=== PATIENT | female | born 1975 | race Caucasian/White ===

== ENCOUNTER → 2017-04-04 | Outpatient (CLI) | payer MEDICAID ==
[~2017-04-04] MED LIST: AMLO5TAB2 PO; ARIP5TAB6 PO; ASPI-515 PO; CELE200C PO; CIPR750T PO; DIAZ5TAB PO; DOCU-30 PO; HYDR-3138 PO; HYDR25TA6 PO; LEVO75TA5 PO; LOSA25TA5 PO; METH750T2 PO; NEBI10TA3 PO; OLME40TA PO; ONDA4TAB10 PO; OXYC-229 PO; OXYC-302 PO; OXYC5CAP4 PO; TRAM50TA2 PO; VENL37.52 PO; VENL75CA PO
[2017-04-04 14:57] LABS: BLOOD UREA NITROGEN 16 mg/dL (7-18)
[2017-04-04 15:00] LABS: ASPARTATE AMINO TRANSFERASE 24 U/L (15-37)
[2017-04-04 15:36] LABS: HIV 1&2 ANTIBODY SCREEN Nonreactive (Nonreactive); HIV-1 p24 ANTIGEN Nonreactive (Nonreactive)
== END | disposition home or self-care (01) ==
LOC: STAR 13:32
PROVIDERS: ATTEND Orthopaedic Surgery
DX: Z01.818 Encounter for other preprocedural examination (principal); M17.32 Unilateral post-traumatic osteoarthritis, left knee; R79.1 Abnormal coagulation profile
CPT/HCPCS: 36415; 80053; 83036; 85025; 85610; 85730; 86703; 87081; 87147; 87899; G0435

== ENCOUNTER 2017-04-08 07:43 | Inpatient (IN) | payer MEDICAID ==
[2017-04-04 14:21] VITALS: BP 147/114
[~2017-04-08] VITALS: Ht 172.7 cm; Wt 140.4 kg
[~2017-04-08 07:43] MED LIST changes: -ASPI-515 PO; -CELE200C PO; -DIAZ5TAB PO; -OXYC5CAP4 PO
[2017-04-08] MEDS ORDERED: VANCOMYCIN PER PHARMACY MC STA (08:09)
[2017-04-08] MEDS ORDERED: PHARMACOKINETIC CONSULTATION MC ONE (08:30)
[2017-04-08] MEDS ORDERED: LACTATED RINGERS 1,000 ML IV SCH (08:42)
[2017-04-08] MEDS ORDERED: MIDAZOLAM 1 MG/ML, 2ML ONE (08:44)
[2017-04-08] MEDS ORDERED: FENTANYL PF 250 MCG/5ML ONE (08:44)
[2017-04-08 08:50] LABS: DAU SCREEN DISCLAIMER
[2017-04-08 09:00] LABS: HCG UR OBC PASS
[2017-04-08] MEDS ORDERED: VANCOMYCIN 2,000 MG in SODIUM CHLORIDE 0.9% 500 ML IV ONE (09:00)
[2017-04-08] MEDS ORDERED: OxyconTIN ER 10 MG TAB.ER PO ONE (09:00)
[2017-04-08] MEDS ORDERED: KETOROLAC 60 MG/2 ML ONE (09:37)
[2017-04-08] MEDS ORDERED: VANCOMYCIN 1,000 MG ONE (09:38)
[2017-04-08] MEDS ORDERED: ROPIvacaine/PF 0.2%, 20 ML ONE (09:38)
[2017-04-08] MEDS ORDERED: SODIUM CHLORIDE 0.9% 50 ML ONE (09:38)
[2017-04-08] MEDS ORDERED: TRANEXAMIC ACID 100 MG/ML, 10ML ONE ×4 (09:38→10:27)
[2017-04-08] MEDS ORDERED: EPINEPHRINE 1 MG/ML, 1ML ONE (09:38)
[2017-04-08] MEDS ORDERED: ONDANSETRON 2MG/ML, 2ML IV PRN (10:00)
[2017-04-08] MEDS ORDERED: ALUMINUM/MAG/SIMETHICONE 30 ML UDC PO PRN (10:00)
[2017-04-08] MEDS ORDERED: BISACODYL 10 MG SUPP PR PRN (10:00)
[2017-04-08] MEDS ORDERED: MAGNESIUM HYDROXIDE 8%, 30ML UDC PO PRN (10:00)
[2017-04-08] MEDS ORDERED: ZOLPIDEM 5MG TABLET PO PRN (10:00)
[2017-04-08] MEDS ORDERED: SENNA/DOCUSATE TABLET PO PRN (10:00)
[2017-04-08] MEDS: ACETAMINOPHEN 650 MG/20.3 ML UDC PO SCH ×3 (10:00→23:15)
[2017-04-08] MEDS ORDERED: DIPHENHYDRAMINE 50 MG CAPSULE PO PRN (10:00)
[2017-04-08] MEDS ORDERED: ONDANSETRON 4 MG TABLET PO PRN (10:00)
[2017-04-08] MEDS ORDERED: PROMETHAZINE 12.5 MG SUPP PR PRN (10:00)
[2017-04-08] MEDS: SCOPOLAMINE PATCH, 1.5MG PATCH.TD72 TD SCH ×2 (10:00→19:01)
[2017-04-08] MEDS ORDERED: PROMETHAZINE 25 MG/ML, 1ML IM PRN (10:00)
[2017-04-08] MEDS ORDERED: ONDANSETRON 2MG/ML, 2ML ONE (10:03)
[2017-04-08] MEDS ORDERED: DEXAMETHASONE 4 MG/ML, 1ML ONE (10:03)
[2017-04-08] MEDS ORDERED: PROPOFOL 10 MG/ML, 20ML ONE (10:03)
[2017-04-08] MEDS ORDERED: CEFAZOLIN 1,000 MG ONE (10:03)
[2017-04-08] MEDS ORDERED: ROCURONIUM 10 MG/ML ONE (10:03)
[2017-04-08] MEDS ORDERED: SUCCINYLCHOLINE 20 MG/ML, 10ML ONE (10:03)
[2017-04-08] MEDS ORDERED: HYDROmorphone 2 MG/ML, 1ML ONE (10:10)
[2017-04-08] MEDS ORDERED: ACETAMINOPHEN 325 MG TABLET PO PRN (11:00)
[2017-04-08] MEDS ORDERED: METOCLOPRAMIDE 5 MG/ML, 2ML IV PRN (11:00)
[2017-04-08] MEDS ORDERED: HYDROmorphone 1 MG/ML, 1ML IV PRN ×2 (11:00→19:00)
[2017-04-08] MEDS ORDERED: ONDANSETRON 2MG/ML, 2ML IVPush PRN (11:00)
[2017-04-08] MEDS ORDERED: hydrALAzine 20 MG/ML, 1ML IV PRN (11:00)
[2017-04-08] MEDS ORDERED: OXYcodone 5 MG/5 ML ORAL.SOL UDC PO PRN (11:00)
[2017-04-08] MEDS ORDERED: ACETAMINOPHEN 650 MG/20.3 ML UDC ONE (12:30)
[2017-04-08] MEDS ORDERED: HYDROmorphone 1 MG/ML, 1ML ONE (12:30)
[2017-04-08] MEDS ORDERED: FENTANYL PF 100 MCG/2ML ONE (12:30)
[2017-04-08] MEDS ORDERED: OXYcodone 5 MG/5 ML ORAL.SOL UDC ONE (12:31)
[2017-04-08] MEDS ORDERED: LABETALOL 5MG/ML, 20ML ONE (12:48)
[2017-04-08] MEDS: LABETALOL 5MG/ML, 20ML IV PRN ×2 (12:50→13:15)
[2017-04-08] MEDS: FENTANYL PF 100 MCG/2ML IV PRN ×3 (12:51→13:55)
[2017-04-08] MEDS ORDERED: TRANEXAMIC ACID 1,500 MG in SODIUM CHLORIDE 0.9% 100 ML IV ONE (13:00)
[2017-04-08] MEDS: METHOCARBAMOL 750 MG TABLET PO SCH ×2 (15:55→21:35)
[2017-04-08] MEDS: D5%-0.45NACL+KCL 20MEQ 1,000 ML IV SCH (16:24)
[2017-04-08] MEDS ORDERED: CEFAZOLIN PMX 2GM/50ML 50 ML IVPB SCH ×2 (16:30→18:15)
[2017-04-08] MEDS: OXYcodone IR 5MG TABLET PO PRN ×2 (17:16→21:36)
[2017-04-08] MEDS: DIAZEPAM 5 MG TABLET PO PRN ×2 (18:09→23:14)
[2017-04-08] MEDS: HYDROmorphone 1 MG/ML, 1ML IV PRN (19:01)
[2017-04-08 19:56] VITALS: BP 125/85
[2017-04-08] MEDS: CEFAZOLIN PMX 2GM/50ML 50 ML IVPB SCH (20:02)
[2017-04-08] MEDS ORDERED: VANCOMYCIN PMX 1GM/200ML 200 ML IVPB ONE (21:00)
[2017-04-08] MEDS: NEBIVOLOL HCL 5 MG TABLET PO SCH (21:35)
[2017-04-08 23:47] VITALS: BP 121/78
[2017-04-09] MEDS: HYDROmorphone 1 MG/ML, 1ML IV PRN (00:21)
[2017-04-09] MEDS: D5%-0.45NACL+KCL 20MEQ 1,000 ML IV SCH ×5 (00:27→23:39)
[2017-04-09] MEDS: OXYcodone IR 5MG TABLET PO PRN ×5 (02:29→19:43)
[2017-04-09 03:23] VITALS: BP 112/73
[2017-04-09] MEDS: ACETAMINOPHEN 650 MG/20.3 ML UDC PO SCH (04:27)
[2017-04-09] MEDS: CEFAZOLIN PMX 2GM/50ML 50 ML IVPB SCH (04:27)
[2017-04-09] MEDS ORDERED: DEXAMETHASONE 4 MG/ML, 1ML IVPush SCH (06:00)
[2017-04-09] MEDS: ASPIRIN 81 MG TABLET EC PO SCH ×2 (06:44→18:04)
[2017-04-09] MEDS: LEVOTHYROXINE 75 MCG TABLET PO SCH (06:44)
[2017-04-09 07:55] VITALS: BP 103/70
[2017-04-09] MEDS: AMLODIPINE 5 MG TABLET PO SCH (08:28)
[2017-04-09] MEDS: LOSARTAN 25MG TABLET PO SCH (08:28)
[2017-04-09] MEDS: NEBIVOLOL HCL 5 MG TABLET PO SCH ×2 (08:28→19:42)
[2017-04-09] MEDS: HYDROCHLOROTHIAZIDE 25 MG TABLET PO SCH (08:28)
[2017-04-09] MEDS: METHOCARBAMOL 750 MG TABLET PO SCH ×3 (08:30→23:37)
[2017-04-09] MEDS: DOCUSATE 100 MG CAPSULE PO SCH ×2 (08:45→19:42)
[2017-04-09] MEDS: TAMSULOSIN 0.4 MG CAP.ER.24H PO SCH (08:45)
[2017-04-09] MEDS: KETOROLAC 30 MG/1 ML IV SCH ×3 (10:00→18:00)
[2017-04-09] MEDS ORDERED: DOCU-30 PO (14:03)
[2017-04-09] MEDS ORDERED: ONDA4TAB10 PO (14:03)
[2017-04-09] MEDS ORDERED: ASPI-515 PO (14:03)
[2017-04-09] MEDS ORDERED: CELE200C PO (14:04)
[2017-04-09] MEDS ORDERED: DIAZ5TAB PO (14:05)
[2017-04-09] MEDS ORDERED: TRAM50TA2 PO (14:05)
[2017-04-09] MEDS ORDERED: OXYC5CAP4 PO (14:06)
[2017-04-09 14:17] VITALS: BP 94/67
[2017-04-09] MEDS ORDERED: ACETAMINOPHEN 325 MG TABLET PO PRN (15:00)
[2017-04-09 15:04] VITALS: BP 133/66
[2017-04-09 19:37] VITALS: BP 112/74
[2017-04-10] MEDS: OXYcodone IR 5MG TABLET PO PRN ×2 (01:31→05:37)
[2017-04-10] MEDS: KETOROLAC 30 MG/1 ML IV SCH (02:00)
[2017-04-10 02:17] VITALS: BP 106/71
[2017-04-10] MEDS: LEVOTHYROXINE 75 MCG TABLET PO SCH (06:36)
[2017-04-10] MEDS: ASPIRIN 81 MG TABLET EC PO SCH (06:36)
[2017-04-10] MEDS: NEBIVOLOL HCL 5 MG TABLET PO SCH (08:30)
[2017-04-10] MEDS: AMLODIPINE 5 MG TABLET PO SCH (08:30)
[2017-04-10] MEDS: TAMSULOSIN 0.4 MG CAP.ER.24H PO SCH (08:31)
[2017-04-10] MEDS: HYDROCHLOROTHIAZIDE 25 MG TABLET PO SCH (08:31)
[2017-04-10] MEDS: D5%-0.45NACL+KCL 20MEQ 1,000 ML IV SCH (08:32)
[2017-04-10] MEDS: DOCUSATE 100 MG CAPSULE PO SCH (08:32)
[2017-04-10] MEDS: LOSARTAN 25MG TABLET PO SCH (08:32)
[2017-04-10 08:42] VITALS: BP 122/76
== END 2017-04-10 09:20 | disposition home or self-care (01) | DRG 470 ==
LOC: ORIP 07:43 → 4NOR 14:19
PROVIDERS: ADMIT Orthopaedic Surgery; ATTEND Orthopaedic Surgery
PROC: 3E0T3BZ Introduction of Anesthetic Agent into Peripheral Nerves and Plexi, Percutaneous Approach (ICD-10-PCS; 2017-04-08)
PROC: 0SRD0J9 Replacement of Left Knee Joint with Synthetic Substitute, Cemented, Open Approach (ICD-10-PCS; principal; 2017-04-08 10:00)
DX: M17.32 Unilateral post-traumatic osteoarthritis, left knee (principal); Z68.42 Body mass index [BMI] 45.0-49.9, adult; E66.01 Morbid (severe) obesity due to excess calories; I10 Essential (primary) hypertension; Z88.0 Allergy status to penicillin; Z79.899 Other long term (current) drug therapy
CPT/HCPCS: 36415; 80307; 81025; 85014; 85018; J0171; J0690; J1100; J1170; J1885; J2250; J2405; J2704; J2795; J3010; J3370; Q0162; J0330; J3480; J7040; J7120

== ENCOUNTER 2021-01-15 17:45 | Emergency (ER) | payer MEDICARE, MEDICAID ==
[~2021-01-15] VITALS: Ht 172.7 cm; Wt 145.7 kg
[~2021-01-15 17:45] MED LIST changes: +AMLO-150 PO; -AMLO5TAB2 PO; +ARIP5TAB13 PO; -ARIP5TAB6 PO; +ASPI-963 PO; +CELE200C PO; +DIAZ5TAB PO; +DOCU-131 PO; -DOCU-30 PO; -HYDR-3138 PO; +HYDR-3237 PO; +LOSA25TA25 PO; -LOSA25TA5 PO; +METH-640 PO; -METH750T2 PO; -OLME40TA PO; +OLME40TA12 PO; -OXYC-229 PO; -OXYC-302 PO; +OXYC-380 PO; +OXYC1TAB14 PO; +OXYC5CAP2 PO
[2021-01-15 17:53] VITALS: BP 191/111
== END 2021-01-15 19:30 | disposition home or self-care (01) ==
LOC: ED 18:45
DX: B34.9 Viral infection, unspecified (principal); Z20.822 Contact with and (suspected) exposure to COVID-19; I10 Essential (primary) hypertension; Z90.49 Acquired absence of other specified parts of digestive tract; Z88.0 Allergy status to penicillin
CPT/HCPCS: 71045; 93005; 99285; U0003